=== PATIENT | female | born 1995 | race Caucasian/White ===

== ENCOUNTER 2018-11-27 19:55 | Emergency (ER) | payer MEDICARE, OTHER ==
[~2018-11-27] VITALS: Ht 152.4 cm; Wt 56.8 kg
[2018-11-27] MEDS: AMOX TR/POT CLAV 875 MG/125 MG TABLET PO ONE (21:17)
[2018-11-27] MEDS: NEOMYCIN/POLYMYXIN B/HYDROCORT 10 ML OTIC SUSPENSION AU ONE (21:17)
[2018-11-27 21:55] VITALS: BP 108/61
== END 2018-11-27 22:00 | disposition home or self-care (01) ==
LOC: EMS 19:57
DX: H60.93 Unspecified otitis externa, bilateral (principal)

== ENCOUNTER 2019-01-04 08:53 | Emergency (ER) | payer MEDICARE, OTHER ==
[~2019-01-04] VITALS: Ht 152.4 cm; Wt 56.8 kg
[2019-01-04] MEDS ORDERED: LORA-1000 PO (09:52)
[2019-01-04] MEDS ORDERED: LURA80 PO (09:52)
[2019-01-04 10:18] LABS: BASOPHILS % (AUTO) 0.3 % (0.0-2.0); EOSINOPHILS % (AUTO) 0.2 % (1.0-6.0); HEMATOCRIT 41.5 % (36-46); HEMOGLOBIN 14.3 g/dL (12.0-16.0); LYMPHOCYTES # (AUTO) 1.7 K/uL (1.0-4.8); LYMPHOCYTES % (AUTO) 19.6 % (22.0-44.0); MEAN CORPUSCULAR HEMOGLOBIN 29.2 pg (26.0-34.0); MEAN CORPUSCULAR HGB CONC 34.4 G/dL (31.0-37.0); MEAN CORPUSCULAR VOLUME 85 fL (80-100); MONOCYTES # (AUTO) 0.7 K/uL (0.1-1.0); MONOCYTES % (AUTO) 8.8 % (2.0-9.0); NEUTROPHILS # (AUTO) 6.1 K/uL (1.8-7.7); NEUTROPHILS % (AUTO) 71.1 % (40.0-70.0); PLATELET COUNT (AUTO) 252 K/uL (150-450); RED BLOOD CELL COUNT(AUTO) 4.88 MIL/uL (4.00-5.20); RED CELL DISTRIBUTION WIDTH 13.2 % (11.5-14.5)
[2019-01-04 10:46] LABS: ANION GAP 16 mmol/L (8-16); CALCIUM, TOTAL 9.7 mg/dL (8.8-10.5); CARBON DIOXIDE 23 mmol/L (22-29); CHLORIDE 101 mmol/L (98-107); CREATININE 1.18 mg/dL (0.60-1.30); GLOMERULAR FILTR. RATE CALC 57 mL/min (>60); GLUCOSE,RANDOM 113 mg/dL (70-110); POTASSIUM 3.1 mmol/L (3.5-5.1); SODIUM SERUM 140 mmol/L (136-145); UREA NITROGEN, BLOOD 26 mg/dL (7-18)
[2019-01-04 10:48] LABS: AMPHET/METH SCREEN,URINE POSITIVE (NEGATIVE); BARBITURATE SCREEN, URINE NEGATIVE (NEGATIVE); BENZODIAZEPINES SCREEN,URINE NEGATIVE (NEGATIVE); CANNABINOID SCREEN,URINE POSITIVE (NEGATIVE); COCAINE SCREEN,URINE POSITIVE (NEGATIVE); METHADONE SCREEN, URINE POSITIVE (NEGATIVE); OPIATE SCREEN,URINE POSITIVE (NEGATIVE)
[2019-01-04 10:49] LABS: ALANINE AMINOTRANSFERASE 10 U/L (12-78); ALBUMIN 4.3 g/dL (3.4-5.0); ALKALINE PHOSPHATASE 50 U/L (46-116); ASPARTATE AMINOTRANSFERASE 23 U/L (15-37); BILIRUBIN,TOTAL 0.8 mg/dL (0.1-1.0); TOTAL PROTEIN, SERUM 8.5 g/dL (6.4-8.2)
[2019-01-04 10:51] LABS: PHENCYCLIDINE SCREEN,URINE NEGATIVE (NEGATIVE)
[2019-01-04 11:54] LABS: HCG,QUANTITATIVE < 1 mIU/mL (0-6)
[2019-01-04 13:09] VITALS: BP 127/96
== END 2019-01-04 13:35 | disposition home or self-care (01) ==
LOC: EMS 08:54
DX: F15.10 Other stimulant abuse, uncomplicated (principal); F12.10 Cannabis abuse, uncomplicated; F31.9 Bipolar disorder, unspecified; F20.9 Schizophrenia, unspecified; Z79.899 Other long term (current) drug therapy
CPT/HCPCS: 36415; 80053; 80307; 84702; 85025; 99285; G0480